=== PATIENT | female | born 1990 | race Caucasian/White ===

== ENCOUNTER 2016-08-10 13:07 | Inpatient (IN) | payer OTHER ==
[2016-08-10] VITALS (17 sets, daily range): BP systolic 111–146; BP diastolic 71–92
[~2016-08-10] VITALS: Ht 160 cm; Wt 83.6 kg
[2016-08-10] MEDS ORDERED: PRENATAL VITAM1 EA10 PO (14:15)
[2016-08-10 14:53] LABS: EOSINOPHIL (%) 0.2 % (0-5); HEMATOCRIT 32.3 % (36.0-46.0); IMMATURE GRANULOCYTE (%) 0.6 % (0.0-0.7); INSTRUMENT ABS NEUTROPHIL CT 4.5 K/uL; LYMPHOCYTE COUNT 1.3 K/uL (1.0-2.8); MCH 28.5 PG (29.0-34.0); MCHC 32.8 G/DL (30.0-36.0); MCV 86.8 FL (83-99); MEAN PLAT.VOLUME 11.5 uM^3 (9.5-12.4); MONOCYTE (%) 5.2 % (3-12); MONOCYTE COUNT 0.3 K/uL (0-0.8); NEUTROPHIL (%) 72.2 % (45-76); NEUTROPHIL COUNT 4.5 K/uL (1.8-6.4); PLATELET COUNT 162 K/uL (156-360); RBC DIS.WIDTH-CV 13.6 % (11.8-14.6); RBC DIS.WIDTH-SD 42.5 % (39-53); RED BLOOD COUNT 3.72 M/uL (3.80-5.20); WHITE BLOOD COUNT 6.2 K/uL (4.1-10.2)
[2016-08-10] MEDS ORDERED: OXYCODONE HCL10 MG PO (16:17)
[2016-08-10] MEDS ORDERED: VALTREX50 MG/ML PO (16:18)
[2016-08-10 16:36] LABS: AMPHETAMINES QUANT VALUE 0 NG/ML; BARBITUATES QUANT VALUE 0 NG/ML; BENZODIAZEPINES QUANT VALUE 0 NG/ML; BENZODIAZEPINES, URINE SCREEN Negative (200 ng/mL); MARIJUANA QUANT VALUE 0 NG/ML; OPIATES QUANTITATIVE VALUE 0 NG/ML; PHENCYCLIDINE QUANT VALUE 0 NG/ML
[2016-08-11] VITALS (16 sets, daily range): BP systolic 124–149; BP diastolic 80–90
[2016-08-12 07:49] LABS: EOSINOPHIL (%) 0.6 % (0-5); EOSINOPHIL COUNT 0.1 K/uL (0-0.3); HEMATOCRIT 27.2 % (36.0-46.0); IMMATURE GRANULOCYTE (%) 0.5 % (0.0-0.7); INSTRUMENT ABS NEUTROPHIL CT 5.5 K/uL; LYMPHOCYTE COUNT 2.6 K/uL (1.0-2.8); MCH 28.3 PG (29.0-34.0); MCV 88.6 FL (83-99); MONOCYTE (%) 6.5 % (3-12); MONOCYTE COUNT 0.6 K/uL (0-0.8); NEUTROPHIL (%) 62.6 % (45-76); NEUTROPHIL COUNT 5.5 K/uL (1.8-6.4); RBC DIS.WIDTH-CV 14.1 % (11.8-14.6); RBC DIS.WIDTH-SD 45.1 % (39-53); RED BLOOD COUNT 3.07 M/uL (3.80-5.20)
[2016-08-12 07:56] VITALS: BP 130/81
[2016-08-12 07:56] LABS: WHITE BLOOD COUNT 8.7 K/uL (4.1-10.2)
[2016-08-12 08:03] LABS: MEAN PLAT.VOLUME 10.9 uM^3 (9.5-12.4); PLAT.SUFFICIENCY DECREASED
[2016-08-12 08:06] LABS: PLATELET COUNT 108 K/uL (156-360)
[2016-08-12 15:53] VITALS: BP 119/77
[2016-08-12 22:36] VITALS: BP 129/86
[2016-08-13 06:10] VITALS: BP 137/88
[2016-08-13] MEDS ORDERED: IBUPROFEN800 MG PO (09:05)
[2016-08-13] MEDS ORDERED: CHROMAGEN,1 CAPSULE PO (09:05)
[2016-08-13 15:26] VITALS: BP 122/80
== END 2016-08-13 17:10 | disposition home or self-care (01) | DRG 774 ==
LOC: LDRP-OP 13:07 → 2WEST 13:08 → LDRP-OP 09-09 12:30
PROVIDERS: Advanced Practice Midwife
PROC: 00HU33Z Insertion of Infusion Device into Spinal Canal, Percutaneous Approach (ICD-10-PCS; principal; 2016-08-11)
PROC: 10E0XZZ Delivery of Products of Conception, External Approach (ICD-10-PCS; principal; 2016-08-11)
PROC: 3E0R3CZ (ICD-10-PCS; principal; 2016-08-11)
PROC: 0KQM0ZZ Repair Perineum Muscle, Open Approach (ICD-10-PCS; principal; 2016-08-11)
DX: O99.324 Drug use complicating childbirth (principal); F11.10 Opioid abuse, uncomplicated; O99.824 Streptococcus B carrier state complicating childbirth; O98.52 Other viral diseases complicating childbirth; O90.81 Anemia of the puerperium; O77.0 Labor and delivery complicated by meconium in amniotic fluid; O99.214 Obesity complicating childbirth; Z37.0 Single live birth; Z3A.39 39 weeks gestation of pregnancy
CPT/HCPCS: 80306 90; 85025; C1755; G0378; J2540; J3010; J7120